=== PATIENT | female | born 1965 | race Caucasian/White ===

== ENCOUNTER 2017-04-13 09:00 | Day surgery (SDC) | payer MEDICARE, OTHER ==
[2017-04-13] MEDS ORDERED: Propofol 10 mg/ml Inj (20 ML) ONE (10:22)
[2017-04-13] MEDS ORDERED: Sodium Chloride 0.9% 1,000 ML IV SCH (11:15)
[2017-04-13 11:22] VITALS: RESP 16; O2SAT 100
[2017-04-13 16:32] VITALS: BP 95/64; PULSE 69; TEMP 98.1
== END 2017-04-13 12:53 | disposition home or self-care (01) ==
LOC: ENDO 09:00
PROVIDERS: ATTEND Internal Medicine
DX: K29.50 Unspecified chronic gastritis without bleeding (principal); K59.00 Constipation, unspecified; K64.8 Other hemorrhoids; R10.84 Generalized abdominal pain